=== PATIENT | female | born 2000 | race Caucasian/White ===

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

== ENCOUNTER 2022-06-26 01:53 | Emergency (ER) | payer MEDICAID ==
[~2022-06-26] VITALS: Ht 152.4 cm; Wt 69.0 kg
[2022-06-26 02:23] VITALS: BP 122/80
== END 2022-06-26 04:00 | disposition left against medical advice (07) ==
LOC: ER 01:53
DX: Z53.21 Procedure and treatment not carried out due to patient leaving prior to being seen by health care provider (principal); R55 Syncope and collapse; R11.0 Nausea; R51.9 Headache, unspecified; Z91.81 History of falling
CPT/HCPCS: 93005; 99281